=== PATIENT | male | born 1995 | race Two or more races ===

== ENCOUNTER 2022-02-13 16:57 | Emergency (ER) | payer OTHER ==
[~2022-02-13] VITALS: Ht 172.7 cm; Wt 62.6 kg
--- NOTE | 2022-02-13 17:12 | NUR ---
BIBS C/O TESTICULAR DISCOMFORT AND PAIN P/S 12/20, "I WENT TO URGENT CARE AND THEY TOLD ME TO COME HERE BECAUSE THEY THINK IT'S TORSION." PAIN STARTED MANAGER CUSTOMER. VITALS ARE WITHIN NORMAL LIMITS, NO RESP DISTRESS NOTED.
--- NOTE | 2022-02-13 17:18 | NUR ---
DR TAM AT BEDSIDE WITH MALE EMT AT BEDSIDE FOR EVAL.
--- NOTE | 2022-02-13 18:13 | NUR ---
ULTRASOUND AT BEDSIDE
--- NOTE | 2022-02-13 18:45 | NUR ---
Patient discharged to home in stable condition. Written and verbal after care instructions given. Patient verbalizes understanding of instruction.
[2022-02-13 18:46] VITALS: BP 137/78
== END 2022-02-13 18:47 | disposition home or self-care (01) ==
LOC: ER 17:20
DX: N50.811 Right testicular pain (principal)
CPT/HCPCS: 76870-TC